=== PATIENT | female | born 1945 | race African-American/Black ===

== ENCOUNTER 2017-04-05 08:17 | Inpatient (IN) ==
[2017-04-01 10:06] LABS: URINE MICRO REVIEW NEEDED? NO; URINE SOURCE CLEAN CATCH
[2017-04-01 10:11] LABS: UR EPITHELIAL CELLS <10 /HPF (<10); URINE BACTERIA NEGATIVE /HPF; URINE RBC <10 /HPF (<10); URINE WBC <10 /HPF (<10)
[2017-04-01 10:12] LABS: BILIRUBIN URINE NEGATIVE (NEGATIVE); BLOOD URINE NEGATIVE (NEGATIVE); COLOR YELLOW; GLUCOSE URINE NEGATIVE (NEGATIVE); LEUKOCYTES URINE TRACE (NEGATIVE); NITRITE URINE NEGATIVE (NEGATIVE); PROTEIN URINE TRACE mg/dL (NEGATIVE); SP GRAVITY URINE 1.022; TURBIDITY URINE CLEAR (CLEAR); UROBILINOGEN URINE NORMAL (NORMAL)
[2017-04-01 10:15] LABS: BASO% 0.7 % (0.0-0.8); EOS# 0.15 X1000 (0.0-0.7); EOS% 2.7 % (0.0-10.0); HEMATOCRIT 40.3 % (37.0-47.0); HEMOGLOBIN 12.7 g/dL (12.0-16.0); LYMPH# 2.49 X1000 (1.2-3.4); LYMPH% 45.4 % (20.5-51.1); MANUAL DIFF NEEDED? YES; MCH 27.2 PG (27-31); MCHC 31.5 g/dL (33-37); MCV 86.3 FL (81-99); MONO# 0.34 X1000 (0.11-0.59); MONO% 6.2 % (1.7-9.3); PLT 167 X1000 (130-400); RBC 4.67 XMIL (4.2-5.4)
[2017-04-01 10:21] LABS: INR 0.98; PROTIME 10.3 Seconds (9.2-11.7)
[2017-04-01 10:33] LABS: AGAP 10; BUN 16 mg/dL (8-22); CALCIUM 9.7 mg/dL (8.8-10.2); CHLORIDE 101 mmol/L (98-107); COSMO 282; POTASSIUM 4.4 mmol/L (3.5-5.1); SODIUM 140 mmol/L (136-145); TCO2 29 mmol/L (25-35)
[2017-04-01 10:51] LABS: LYMPHS 42 % (21-51); MONO 6 % (1-9)
--- NOTE | 2017-04-01 15:23 | EKG Report ---
Test Performed on : 04/01/2017 09:19:40 AM Test Reason : PAT Blood Pressure : / mmHG Vent. Rate : 072 BPM Atrial Rate : 072 BPM P-R Int : 110 ms QRS Dur : 076 ms QT Int : 376 ms P-R-T Axes : -18 -22 -04 degrees QTc Int : 411 ms Sinus rhythm. with short FL with premature atrial complexes. Otherwise normal ECG When compared with ECG of 19-JUN-2016 08:45, premature ventricular complexes. are no longer present premature atrial complexes. are now present Confirmed by Gabriella Camacho MD ([id number]) on 04/02/2017 1:00:29 PM
[2017-04-05] MEDS ORDERED: PEPCID ONE (08:33)
[2017-04-05] MEDS ORDERED: REGLAN ONE (08:35)
[2017-04-05] MEDS ORDERED: LYRICA ONE (08:35)
[2017-04-05] MEDS ORDERED: CELEBREX ONE (08:35)
[2017-04-05] MEDS ORDERED: COLACE ONE (08:35)
[2017-04-05] MEDS ORDERED: LR 1,000 ML ONE (08:37)
[2017-04-05] MEDS ORDERED: KEFZOL 2 GM/D5W 2 GM/50 ML IVPB ONE (08:38)
[2017-04-05] MEDS ORDERED: LOPRESSOR ONE (08:48)
[2017-04-05] MEDS ORDERED: DIPRIVAN 1% 500 MG/50 ML BOTTLE ONE (10:13)
[2017-04-05] MEDS ORDERED: DURAMORPH ONE (10:17)
[2017-04-05] MEDS ORDERED: DIPRIVAN 1% ONE (10:17)
[2017-04-05] MEDS ORDERED: FENTANYL ONE (10:17)
[2017-04-05] MEDS ORDERED: SODIUM CHLORIDE 0.9% ONE (10:18)
[2017-04-05] MEDS ORDERED: CYKLOKAPRON 1,000 MG/NS 1,000 MG/100 ML IVPB ONE ×2 (10:18→10:20)
[2017-04-05] MEDS ORDERED: VANCOMYCIN ONE (10:18)
[2017-04-05] MEDS ORDERED: TORADOL ONE (10:18)
[2017-04-05] MEDS ORDERED: SENSORCAINE 0.25%/EPI 1:200,000 ONE (10:18)
[2017-04-05] MEDS ORDERED: NEOSPORIN G.U. IRRIGANT ONE (10:19)
[2017-04-05] MEDS ORDERED: EXPAREL 1.3% ONE (10:19)
[2017-04-05] MEDS ORDERED: SODIUM CHLORIDE 0.9% 10 ML ONE (10:29)
[2017-04-05] MEDS ORDERED: NEO-SYNEPHRINE ONE (10:29)
[2017-04-05] MEDS ORDERED: ZOFRAN ONE (11:37)
[2017-04-05] MEDS ORDERED: OFIRMEV 1000 MG/ISOTONIC SOLN 1,000 MG/100 ML BOTTLE ONE (11:38)
[2017-04-05 11:40] LABS: URINE MICRO REVIEW NEEDED? NO; URINE SOURCE CATH
[2017-04-05 11:44] LABS: BILIRUBIN URINE NEGATIVE (NEGATIVE); BLOOD URINE NEGATIVE (NEGATIVE); COLOR YELLOW; GLUCOSE URINE NEGATIVE (NEGATIVE); LEUKOCYTES URINE NEGATIVE (NEGATIVE); NITRITE URINE NEGATIVE (NEGATIVE); PROTEIN URINE NEGATIVE (NEGATIVE); SP GRAVITY URINE 1.014; TURBIDITY URINE CLEAR (CLEAR); UROBILINOGEN URINE NORMAL (NORMAL)
[2017-04-05 11:45] LABS: UR EPITHELIAL CELLS <10 /HPF (<10); URINE BACTERIA NEGATIVE /HPF; URINE RBC <10 /HPF (<10); URINE WBC <10 /HPF (<10)
[2017-04-05] MEDS ORDERED: NS 1,000 ML ONE (12:49)
[2017-04-05] MEDS ORDERED: OXY IR PO PRN (13:45)
[2017-04-05] MEDS ORDERED: ZOFRAN IV PRN (13:45)
[2017-04-05] MEDS ORDERED: AMBIEN PO PRN (13:45)
[2017-04-05] MEDS ORDERED: MILK OF MAGNESIA PO PRN (13:45)
[2017-04-05] MEDS ORDERED: MORPHINE IV PRN (13:45)
[2017-04-05] MEDS: KEFZOL 1 GM/D5W 1 GM/50 ML IVPB IV SCH (16:52)
[2017-04-05] MEDS: ULTRAM PO SCH ×2 (16:52→21:00)
[2017-04-05] MEDS: TYLENOL PO SCH ×2 (16:52→21:00)
--- NOTE | 2017-04-05 17:28 | OPERATIVE NOTE ---
PROCEDURE DATE: 04/05/2017 PREOPERATIVE DIAGNOSIS: Left knee degenerative joint disease. POSTOP DIAGNOSIS: Left knee degenerative joint disease. PROCEDURE PERFORMED: Left total knee arthroplasty using a [employer] a size 6 femoral component, a size 5 tibial base plate, a 13 mm articular insert, and a 35 mm patellar component. ANESTHESIA: Spinal. SURGEON: Horace Willingham MD CARD WRITER HAND: Bryce Edwards PA-C who was present throughout the case and assisted with preparing the femur and tibia, cementing the femur, tibia and patella and with wound closure. 2ND CARD WRITER HAND: Patel Rouse RN. COMPLICATIONS: None. BLOOD LOSS: Minimal. TOURNIQUET TIME: Approximately an hour and half. DESCRIPTION OF PROCEDURE: The patient was brought to operative suite and placed in supine position. After successful administration of spinal anesthesia, a well-padded tourniquet was placed on left proximal thigh. The left lower extremity was prepped and draped in usual sterile fashion. The leg was exsanguinated. Tourniquet insufflated to 350 torr. A longitudinal made beginning superior pole patella extended distally to tibia tuberosity, dissected sharply through the skin and full-thickness skin flaps were elevated medially and laterally. A medial arthrotomy was made with vastus snip. The medial capsule was elevated off the medial tibial plateau. The prepatellar fat pad, ACL, PCL, medial meniscus, lateral meniscus were excised. A drill was entered the center of distal femur. Intramedullary guide was placed. Distal cutting block was pinned in place, cuts made with oscillating saw. The femur was sized to a size 6. A size 6 cutting block was pinned in place. Anterior cuts, chamfer cuts and posterior condylar cuts were made with the oscillating saw. Marginal osteophytes removed with rongeur. A box cutting block was pinned in place. A box cut was made with a box osteotome and oscillating saw. Posterior condyle osteophytes removed curved osteotome and rongeur. Attention then directed to tibia. A drill was entered in the center of the tibia. Intramedullary guide was placed. Alignment checked with drop lucrecia referencing off the anterior cortex, tibia and the second ray of the foot and taking 4 mm off the low side tibia which in this case was medially. The articular surface the tibial plateau was removed with oscillating saw. There was still found to be sclerotic bone medially therefore an extra 2 mm was taken off the tibia moving the guide down 2 mm, pinning it and then and then re-sawing the tibia. Flexion-extension gaps were checked and balanced to 13 mm. The marginal osteophytes removed. The tibia was sized to a size 5. A size 5 guide was used for the fin punch. The tibial trial, femoral trial and 13 mm articular insert placed, taken through range of motion and found to have excellent alignment, balancing, range of motion. Attention was then directed to patella, 9 mm of the articular surface patella removed with oscillating saw, patella sized to a size 35. A size 35 guide was used drill peg holes. Lateral facet was chamfered 30 to 45 degrees. Patella trial placed taken through range of motion and found have excellent patella tracking. All trials were then removed. Knee was copiously irrigated and dried being certain all bone debris was removed. The tibial component, femoral component, patellar component were cemented into place excess cement being removed with a [place]. Once the cement had hardened, excess cement was again removed with an osteotome. Knee was again copiously irrigated and dried, being certain all bone and cement were removed. The trial articular insert was removed. The knee was copiously infiltrated with Exparel including crm functional analyst capsule, anterior capsule, medial and lateral collateral ligaments, anterior musculature and subcutaneous tissue. The definitive 13 mm articular insert was locked in place and taken through range of motion. Knee was again found to have excellent alignment, balancing, range of motion, patellar tracking. A drain was placed exiting superolaterally and buried in the lateral gutter. The medial arthrotomy was closed with a running 0 V-Loc suture. The skin edge approximated with 2-0 Vicryl. The skin was closed with Prineo. A sterile dressing was applied. The patient tolerated the procedure well without complication. At the end the procedure all counts were correct. The patient was transferred to the recovery room in stable condition. cc: Horace Willingham MD
[2017-04-05] MEDS: GLUCOPHAGE PO SCH (17:36)
[2017-04-05] MEDS: NS 1,000 ML IV SCH (17:37)
[2017-04-05] MEDS: LYRICA PO SCH (21:00)
[2017-04-05] MEDS: COLACE PO SCH (21:00)
[2017-04-05] MEDS: CELEBREX PO SCH (21:00)
[2017-04-05] MEDS: PERIDEX MT SCH (21:01)
[2017-04-06] MEDS: NS 1,000 ML IV SCH (01:42)
[2017-04-06] MEDS: KEFZOL 1 GM/D5W 1 GM/50 ML IVPB IV SCH (01:42)
[2017-04-06] MEDS: TYLENOL PO SCH ×2 (03:25→09:41)
[2017-04-06] MEDS: ULTRAM PO SCH ×2 (03:26→09:40)
[2017-04-06 05:57] LABS: HEMATOCRIT 31.6 % (37.0-47.0); HEMOGLOBIN 9.5 g/dL (12.0-16.0)
[2017-04-06] MEDS ORDERED: XARELTO PO SCH (06:00)
[2017-04-06 06:20] LABS: AGAP 9; BUN 12 mg/dL (8-22); CALCIUM 8.6 mg/dL (8.8-10.2); CHLORIDE 104 mmol/L (98-107); COSMO 280; POTASSIUM 4.4 mmol/L (3.5-5.1); SODIUM 140 mmol/L (136-145); TCO2 27 mmol/L (25-35)
[2017-04-06 08:22] VITALS: BP 134/58
[2017-04-06] MEDS ORDERED: LOPRESSOR PO SCH (09:00)
[2017-04-06] MEDS ORDERED: COZAAR PO SCH (09:00)
[2017-04-06] MEDS ORDERED: PAXIL PO SCH (09:00)
[2017-04-06] MEDS ORDERED: PEPCID PO SCH (09:00)
[2017-04-06] MEDS ORDERED: DECADRON IV ONE (09:00)
[2017-04-06] MEDS ORDERED: NORVASC PO SCH (09:00)
[2017-04-06] MEDS: PERIDEX MT SCH (09:40)
[2017-04-06] MEDS: GLUCOPHAGE PO SCH (09:41)
[2017-04-06] MEDS: LYRICA PO SCH (09:42)
[2017-04-06] MEDS: CELEBREX PO SCH (09:42)
[2017-04-06] MEDS: COLACE PO SCH (09:42)
--- NOTE | 2017-04-06 19:34 | DISCHARGE SUMMARY ---
ADMISSION DATE: 04/05/2017 DISCHARGE DATE: 04/06/2017 DISCHARGE DIAGNOSIS: Left knee degenerative joint disease status post left total knee arthroplasty. DISCHARGE MEDICATIONS: See discharge medication list. DISPOSITION: The patient is discharged home with home health. DISCHARGE INSTRUCTIONS FOR TOTAL KNEE ARTHROPLASTY PROTOCOL: Instructed to return to see Dr. Willingham next . HOSPITAL COURSE: On the day of admission, patient underwent a left total knee arthroplasty. Her postoperative course was unremarkable. At discharge, she is afebrile and tolerating regular diet. She had 0 mL of drainage from her Hemovac. Her hemoglobin is 9.5, hematocrit is 31.6. Her wound is clean, dry, and intact without sign of infection. Her calf is soft. She will be discharged home after working with Physical Therapy this morning. She is discharged in stable condition. Instructions to follow up as described above. Dictated by NHAN Barclay for Horace Willingham MD cc: NHAN Barclay MD
[2017-04-06] MEDS ORDERED: ZOCOR PO SCH (21:00)
== END 2017-04-06 11:36 | disposition home health service (06) ==
LOC: SURHOLD 08:17 → 4N 11:11
PROVIDERS: ADMIT Orthopaedic Surgery; ATTEND Orthopaedic Surgery